=== PATIENT | female | born 1970 | race Caucasian/White ===

== ENCOUNTER 2016-07-11 19:03 | Emergency (ER) | payer MEDICAID ==
[~2016-07-11] VITALS: Ht 154.9 cm; Wt 69.5 kg
[~2016-07-11 19:03] MED LIST: ALBUTEROL; MONT5TAB12; PRED10TA
[2016-07-11 20:06] VITALS: Ht 154.9 cm; Wt 69.5 kg
[2016-07-11] MEDS ORDERED: IBUP-1542 PO (22:11)
[2016-07-11] MEDS ORDERED: AMO500 PO (22:11)
--- NOTE | 2016-07-11 22:16 | ERD ---
ER Documentation Chief Complaint Date/Time DATE: 07/11/16 TIME: 22:14 Chief Complaint sore throat for today with vera HPI 46-year-old female presents to emergency department for complaint of sore throat headache started today. Patient's complaining of sore throat, burning pain, 6/10 scale, is worse upon swallowing. This is accompanied with headache, throbbing pain, 3/10 scale. Patient did not take any medications of symptoms. Patient denies any shortness breath or stridor. Patient denies any cough. Patient denies any runny nose nasal congestion. Patient denies any fever or chills. Patient denies any neck pain. Patient denies any difficulty swallowing. ROS All systems reviewed and are negative except as per history of present illness. Medications Home Meds Active Scripts Amoxicillin* (Amoxicillin*) 500 Mg Cap, 500 MG PO TID for 10 Days, CAP Prov:LUCIANA NAYLOR REMOTE SENSING ENGINEER 07/11/16 Ibuprofen* (Motrin*) 600 Mg Tab, 600 MG PO Q6H Y for PAIN AND OR ELEVATED TEMP, #30 TAB Prov:LUCIANA NAYLOR REMOTE SENSING ENGINEER 07/11/16 Reported Medications Montelukast Sodium* (Singulair*) 5 Mg Tab.chew, 1 BID 03/11/13 Prednisone* (Prednisone*) 10 Mg Tab, 1 DAILY 03/11/13 [Albuterol] No Conflict Check 10/20/09 Allergies Allergies: Coded Allergies: No Known Allergy (Unverified , 03/11/13) PMhx/Soc History of Surgery: No Anesthesia Reaction: No Hx Neurological Disorder: No Hx Respiratory Disorders: Yes (ASTHMA) Hx Cardiac Disorders: No Hx Psychiatric Problems: No Hx Miscellaneous Medical Probl: Yes (GALLSTONES) Hx Alcohol Use: No Hx Substance Use: No Hx Tobacco Use: No FmHx Family History: No coronary disease, No diabetes, No other Physical Exam Vitals Vital Signs Date Time Temp Pulse Resp B/P Pulse Ox O2 Delivery O2 Flow Rate FiO2 07/11/16 20:06 98.3 86 20 115/58 98 Physical Exam GENERAL: The patient is well developed and appropriate for usual state of health, in no apparent distress. HEENT: Atraumatic. Ears: Normal tympanic membrane, no erythema or bulging. No ear canal swelling. No ear discharge. Nose: normal nasal turbinates, no erythema or swelling. Normal nasal discharge. Throat: oropharynx erythematous with +1 bilateral tonsillar swelling with exudates noted. No lymphadenopathy. CHEST: Clear to auscultation bilaterally. There are no rales, wheezes or rhonchi. HEART: Regular rate and rhythm. No murmurs, clicks, rubs or gallops. No S3 or S4. ABDOMEN: Soft, nontender and nondistended. Good bowel sounds. No rebound or guarding. No gross peritonitis. No gross organomegaly or masses. No Romero sign or McBurney point tenderness. BACK: No midline or flank tenderness. EXTREMITIES: Equal pulses bilaterally. There is no peripheral clubbing, cyanosis or edema. No focal swelling or erythema. Full range of motion. Grossly neurovascularly intact. NEURO: Alert and oriented. Cranial nerves 2-12 intact. Motor strength in all 4 extremities with 5/5 strength. Sensation grossly intact. Normal speech and gait. SKIN: There is no apparent rash or petechia. The skin is warm and dry. HEMATOLOGIC AND LYMPHATIC: There is no evidence of excessive bruising or lymphedema. No gross cervical, axillary, or inguinal lymphadenopathy. Procedures/MDM Medical decision making: Patient's symptoms most active consistent with acute bacterial pharyngitis, most likely strep throat, no symptoms of respiratory distress, no oral airway obstruction noted, no symptoms of peritonsillar abscess , epiglottitis, laryngitis. No symptoms of sepsis at this time. Patient appears well and is hemodynamically stable. Prescription was given for ibuprofen, amoxicillin, is advised to do salt water gargles, rest, drink a lot of water. Patient was advised to return to emergency department for any worsening symptoms , follow-up with primary care doctor in 2-3 days for reevaluation of symptoms. Departure Diagnosis: Primary Impression: Acute bacterial pharyngitis Condition: Stable Patient Instructions: Pharyngitis, Strep (Presumed) [facility] Usted se vera hecho un examen mdico de control que le indica que no est en andrey condicin que requiera tratamiento urgente en el Departamento de Emergencia. Un estudio ms profundo y el tratamiento de ring condicin pueden esperar sin ningn riesgo hasta que usted sea atendida/o en el consultorio de ring mdico o andrey cl teddy. Es responsabilidad suya arreglar andrey elmer para el seguimiento del joaquin. MANEJO DE CONDICIONES NO URGENTES EN EL FUTURO 1) Si usted tiene un mdico de atencin primaria: Usted debera llamar a ring mdico de atencin primaria antes de venir al departamento de emergencia. Despus de las horas de consultorio, ring doctor o ring asociado/a est disponible por telfono. El mdico o enfermero de yvette en el servicio telefnico puede asesorarle por mitesh medio para atender el problema, o joaquin contrario se puede programar andrey elmer. 2) Si usted no tiene un mdico de atencin primaria: Llame al mdico o clnica de referencia que aparece abajo ceferino las horas de consultorio para hacer andrey elmer para que le vean. CLINICAS: [facility] [phone] [facility] [phone] [facility]. [facility] [phone] [facility]. [place] [phone] [facility]. [place] [phone] [facility]. [phone] [address] . [facility] () Trista se vera hecho un examen mdico de control que le indica que no est en andrey condicin que requiera tratamiento urgente en el Departamento de Emergencia. Un estudio ms profundo y el tratamiento de ring condicin pueden esperar sin ningn riesgo hasta que usted sea atendida/o en el consultorio de ring mdico o andrey cl teddy. Es responsabilidad suya arreglar andrey elmer para el seguimiento del joaquin. MANEJO DE CONDICIONES NO URGENTES EN EL FUTURO 1) Si usted tiene un mdico de atencin primaria: Usted debera llamar a ring mdico de atencin primaria antes de venir al departamento de emergencia. Despus de las horas de consultorio, ring doctor o ring asociado/a est disponible por telfono. El mdico o enfermero de yvette en el servicio telefnico puede asesorarle por mitesh medio para atender el problema, o joaquin contrario se puede programar andrey elmer. 2) Si usted no tiene un mdico de atencin primaria: Llame al mdico o condado institucions de referencia que aparece abajo ceferino las horas de consultorio para hacer andrey elmer para que le vean. SI USTED NO PUEDE PAGAR PARA MARIANNA UN MEDICO puede ir a: [facility] [address] [place] [address] [facility] [address] [place] [address] [facility] [address] [place] [address] [facility] [address] [place] [address] CUISIA,LUCIANA Weber NP Jul 11, 2016 22:16
== END 2016-07-11 22:22 | disposition home or self-care (01) ==
LOC: FTE 19:03
DX: J02.9 Acute pharyngitis, unspecified (principal); J45.909 Unspecified asthma, uncomplicated
CPT/HCPCS: 99283

== ENCOUNTER 2017-02-10 17:52 | Inpatient (IN) | payer MEDICAID ==
[~2017-02-10] VITALS: Ht 147.3 cm; Wt 62.9 kg
[~2017-02-10 17:52] MED LIST changes: +AMO500 PO; +IBUP-1542 PO
[2017-02-10 18:19] VITALS: Ht 147.3 cm; Wt 62.9 kg
[2017-02-10] MEDS ORDERED: CEFEPIME 2GM/50 ML (PMX) 50 ML IVPB STA (20:07)
[2017-02-10] MEDS ORDERED: SODIUM CHLORIDE 0.9% 1L BAG IV* STA (20:07)
[2017-02-10] MEDS ORDERED: ALBUTEROL 0.083% (NEB) 2.5 MG/3 ML AMP HHN STA (20:07)
[2017-02-10 20:10] VITALS: TEMP 100.4
[2017-02-10] MEDS ORDERED: IPRATROPIUM (NEB) 0.5 MG/2.5 ML AMP HHN ONE (20:30)
--- NOTE | 2017-02-10 21:06 | RADRPT ---
PROCEDURE: XR Chest. CLINICAL INDICATION: Possible sepsis TECHNIQUE: Single frontal view of the chest was obtained COMPARISON: None FINDINGS: The heart and mediastinum are within normal limits. There is minimal prominence of the lung interstitium likely minimal chronic changes. Patchy increase d densities at lung bases could represent patchy infiltrates. There is no pleural effusion or pneumothorax. ECG leads projected over the chest. IMPRESSION: Patchy increased densities at lung bases could represent patchy infiltrates. RPTAT: HJES .Sagar Velasquez MD, MD Date Time Electronically viewed and signed by .Sagar Velasquez MD, MD on 02/10/2017 21:06 .S/
[2017-02-10 21:26] LABS: ABNORMAL IP MESSAGE 1; HEMATOCRIT 34.3 % (37.0-47.0); HEMOGLOBIN 11.1 g/dl (12.0-16.0); MEAN CORPUSCULAR HEMOGLOBIN 26.4 pg (29.0-33.0); MEAN CORPUSCULAR HGB CONC 32.4 g/dl (32.0-37.0); MEAN CORPUSCULAR VOLUME 81.7 fl (82.0-101.0); MEAN PLATELET VOLUME 10.9 fl (7.4-10.4); PLATELET COUNT 83 10^3/UL (140-415); RED CELL DISTRIBUTION WIDTH 14.9 % (11.5-14.5); WHITE BLOOD COUNT 20.7 10^3/ul (4.8-10.8)
[2017-02-10] MEDS ORDERED: MONT5TAB16 PO (21:38)
[2017-02-10] MEDS ORDERED: MOME13HF INHALATION (21:40)
[2017-02-10] MEDS ORDERED: ALBU2.5V3 NEB (21:40)
[2017-02-10 21:47] LABS: INR 1.14; PROTIME 14.6 Sec (12.2-14.2); PT RATIO 1.1
[2017-02-10 21:48] LABS: PARTIAL THROMBOPLASTIN TIME 32.9 Sec (25.0-35.0)
[2017-02-10 21:55] LABS: ALANINE AMINOTRANSFERASE 29 IU/L (13-69); ALBUMIN 3.9 g/dl (3.3-4.9); ALBUMIN/GLOBULIN RATIO 1.11; ALKALINE PHOSPHATASE 89 IU/L (42-121); ANION GAP 13 (8-16); ASPARTATE AMINO TRANSFERASE 16 IU/L (15-46); BILIRUBIN,INDIRECT 0.9 mg/dl (0-1.1); BILIRUBIN,TOTAL 0.9 mg/dl (0.2-1.3); BLOOD UREA NITROGEN 10 mg/dl (7-20); CARBON DIOXIDE 30 mmol/L (21-31); CHLORIDE 96 mmol/L (97-110); CREATININE 0.54 mg/dl (0.44-1.00); GLUCOSE 135 mg/dl (70-220); POTASSIUM 3.8 mmol/L (3.5-5.1); SODIUM 135 mmol/L (135-144); TOTAL PROTEIN 7.4 g/dl (6.1-8.1)
[2017-02-10 21:57] LABS: POSITIVE DIFF @See below
[2017-02-10 22:06] LABS: TROPONIN-I < 0.012 ng/ml (0.00-0.12)
[2017-02-10 22:50] LABS: ADD UMIC YES; UR ASCORBIC ACID NEGATIVE (NEGATIVE); UR BILIRUBIN (Dip) NEGATIVE (NEGATIVE); UR BLOOD (Dip) 3+ mg/dL (NEGATIVE); UR CLARITY CLEAR (CLEAR); UR COLOR YELLOW (YELLOW); UR GLUCOSE (Dip) NEGATIVE (NEGATIVE); UR KETONES (Dip) 1+ mg/dL (NEGATIVE); UR LEUKOCYTE ESTERASE (Dip) NEGATIVE Leu/ul (NEGATIVE); UR NITRITE (Dip) NEGATIVE (NEGATIVE); UR RBC 3 /HPF (0-5); UR SPECIFIC GRAVITY (Dip) 1.015 (1.003-1.030); UR TOTAL PROTEIN (Dip) NEGATIVE (NEGATIVE); UR UROBILINOGEN (Dip) 1+ mg/dL (NEGATIVE)
[2017-02-10 22:57] LABS: EOSINOPHILS # 0.4 10^3/ul (0.0-0.5); EOSINOPHILS % (M) 2 % (0.0-7.0); ERYTHROBLAST% (NRBC) (M) 1 % (0-0); LYMPHOCYTES # 0.8 10^3/ul (0.8-2.9); MONOCYTES % (M) 5 % (0-11)
[2017-02-10] MEDS ORDERED: ONDANSETRON 4 MG INJ IV PRN (23:00)
[2017-02-10] MEDS ORDERED: ACETAMINOPHEN 325 MG TAB PO PRN (23:00)
[2017-02-10] MEDS ORDERED: AZITHROMYCIN 500MG/NS (PMX) 250 ML IVPB ONE (23:30)
--- NOTE | 2017-02-10 23:31 | ERA ---
ER Documentation Chief Complaint Date/Time DATE: 02/10/17 TIME: 23:24 Chief Complaint Complains of vomiting and fever x 3 days HX of Asthma HPI This 46-year-old female presents for vomiting and fever 3 days. She has a history of asthma. He has had very little cough. Does not feel short of breath. She has had fevers and chills and felt much more fatigued than usual. ROS All systems reviewed and are negative except as per history of present illness. Medications Home Meds Reported Medications Mometasone-Formoterol (Dulera) Unknown Strength Hfa.aer.ad, 2 PUFFS INHALATION BID, #1 INHALER 02/10/17 Albuterol Sulfate* (Albuterol Sulfate* Neb) Unknown Strength Neb, MG NEB Q7D Y for WHEEZING AND SOB, #30 VIAL 02/10/17 Montelukast Sodium* (Montelukast Sodium*) 5 Mg Tab.chew, 5 MG PO BID, #30 TAB 02/10/17 Discontinued Reported Medications Montelukast Sodium* (Singulair*) 5 Mg Tab.chew, 1 BID 03/11/13 Prednisone* (Prednisone*) 10 Mg Tab, 1 DAILY 03/11/13 [Albuterol] No Conflict Check 10/20/09 Discontinued Scripts Amoxicillin* (Amoxicillin*) 500 Mg Cap, 500 MG PO TID for 10 Days, CAP Prov:LUCIANA NAYLOR MEDICAL VIDEOGRAPHER 07/11/16 Ibuprofen* (Motrin*) 600 Mg Tab, 600 MG PO Q6H Y for PAIN AND OR ELEVATED TEMP, #30 TAB Prov:LUCIANA NAYLOR MEDICAL VIDEOGRAPHER 07/11/16 Allergies Allergies: Coded Allergies: hydrocortisone (Unverified Allergy, Mild, vomiting, 02/10/17) PMhx/Soc History of Surgery: Yes ( x 2) Anesthesia Reaction: No Hx Neurological Disorder: No Hx Respiratory Disorders: Yes (ASTHMA) Hx Cardiac Disorders: No Hx Psychiatric Problems: No Hx Miscellaneous Medical Probl: Yes (GALLSTONES, pancreatitis) Hx Alcohol Use: No Hx Substance Use: No Hx Tobacco Use: No Physical Exam Vitals Vital Signs Date Time Temp Pulse Resp B/P Pulse Ox O2 Delivery O2 Flow Rate FiO2 02/10/17 21:25 105 24 95 21 02/10/17 18:19 103.3 126 20 107/60 94 Physical Exam Const: [] Mild distress to moderate distress Head: Atraumatic Eyes: Normal Conjunctiva ENT: Normal External Ears, Nose and Mouth. Neck: Full range of motion..~ No meningismus. Resp: Decreased bibasilar breath sounds, no wheezing Cardio: Regular Tachycardia no murmurs Abd: Soft, Mild epigastric tenderness without guarding or rebound,, non distended. Normal bowel sounds Skin: No petechiae or rashes Back: No midline or flank tenderness Ext: No cyanosis, or edema Neur: Awake and alert Psych: Normal Mood and Affect Result Diagram: 02/10/17204402/10/172044 Results 24 hrs Laboratory Tests Test 02/10/17 20:45 02/10/17 21:00 02/10/17 22:00 White Blood Count 20.710^3/ul Red Blood Count 4.2010^6/ul Hemoglobin 11.1g/dl Hematocrit 34.3% Mean Corpuscular Volume 81.7fl Mean Corpuscular Hemoglobin 26.4pg Mean Corpuscular Hemoglobin Concent 32.4g/dl Red Cell Distribution Width 14.9% Platelet Count 8310^3/UL Mean Platelet Volume 10.9fl Neutrophils % % Segmented Neutrophils % (Manual) 87% Band Neutrophils % (Manual) 2% Lymphocytes % % Lymphocytes % (Manual) 4% Monocytes % % Monocytes % (Manual) 5% Eosinophils % % Eosinophils % (Manual) 2% Basophils % % Nucleated Red Blood Cells % 1% Neutrophils # (Manual) 18.110^3/ul Band Neutrophils # 0.410^3/ul Absolute Lymphocytes (Manual) Pending Lymphocytes # 0.810^3/ul Monocytes # 1.010^3/ul Absolute Monocytes (Manual) Pending Eosinophils # 0.410^3/ul Basophils # 10^3/ul Nucleated Red Blood Cells # 10^3/ul Prothrombin Time 14.6Sec Prothrombin Time Ratio 1.1 INR International Normalized Ratio 1.14 Activated Partial Thromboplast Time 32.9Sec Sodium Level 135mmol/L Potassium Level 3.8mmol/L Chloride Level 96mmol/L Carbon Dioxide Level 30mmol/L Anion Gap 13 Blood Urea Nitrogen 10mg/dl Creatinine 0.54mg/dl Glucose Level 135mg/dl Calcium Level 9.0mg/dl Total Bilirubin 0.9mg/dl Direct Bilirubin 0.00mg/dl Indirect Bilirubin 0.9mg/dl Aspartate Amino Transf (AST/SGOT) 16IU/L Alanine Aminotransferase (ALT/SGPT) 29IU/L Alkaline Phosphatase 89IU/L Troponin I < 0.012ng/ml Total Protein 7.4g/dl Albumin 3.9g/dl Globulin 3.50g/dl Albumin/Globulin Ratio 1.11 Lactic Acid Level 1.2mmol/L Urine Color YELLOW Urine Clarity CLEAR Urine pH 6.0 Urine Specific Central 1.015 Urine Ketones 1+mg/dL Urine Nitrite NEGATIVEmg/dL Urine Bilirubin NEGATIVEmg/dL Urine Urobilinogen 1+mg/dL Urine Leukocyte Esterase NEGATIVELeu/ul Urine Microscopic RBC 3/HPF Urine Microscopic WBC 1/HPF Urine Hemoglobin 3+mg/dL Urine Glucose NEGATIVEmg/dL Urine Total Protein NEGATIVEmg/dl Current Medications Medications (Trade) Dose Ordered Sig/Lex Route PRN Reason Start Time Stop Time Status Last Admin Dose Admin Sodium Chloride 1910 ml 1,910 ml BOLUS OVER 2 HOURS STAT IV* 02/10/17 20:07 02/10/17 20:10 DC 02/10/17 20:35 Cefepime HCl (Maxipime 2gm/50 ml (Pmx)) 50 ml @ 100 mls/hr ONCE STAT IVPB 02/10/17 20:07 02/10/17 20:36 DC 02/10/17 20:35 Albuterol (Proventil 0.083% (Neb)) 5 mg ONCE STAT HHN 02/10/17 20:07 02/10/17 20:10 DC 02/10/17 20:25 Ipratropium How[place] (Atrovent 0.02% (Neb)) 0.5 mg ONCE ONCE HHN 02/10/17 20:30 02/10/17 20:31 DC 02/10/17 20:25 Ondansetron HCl (Zofran Inj) 4 mg BRIDGE ORDER PRN IV NAUSEA AND/OR VOMITING 02/10/17 23:00 02/11/17 22:59 Acetaminophen (Tylenol Tab) 650 mg ER BRIDGE PRN PO MILD PAIN/FEVER 02/10/17 23:00 02/11/17 22:59 Procedures/MDM Pneumonia with sepsis. She has not had any hospitals recently and is in a community acquired pneumonia. She was given 30 cc/kg of IV fluid and cefepime empirically. She still felt lightheaded but was improving. Tachycardia improved with fluid administration as well. Patient denies any specific pain. She is being admitted to the medical surgical floor for further management and IV antibiotics.Patient also vomited blood twice and she has very low platelets. This will be monitored as well. EKG interpretation: Sinus tachycardia rate of 120, no ST or T-wave changes concerning for acute ischemia, normal axis, normal intervals. equipment monitor phototypesetting interpretation: Sinus tachycardia improved with IV fluids Chest x-ray interpretation: Patchy infiltrates in bilateral lower lungs, no evidence of pneumothorax or pulmonary edema, no fractures Critical care time 37 minutes: This includes treatment of pneumonia sepsis, very careful fluid administration, treatment of unstable vital signs, empiric antibiotic administration, multiple visits patient's bedside to reassess status , chart review, discussion with admitting doctor and patient. This does not include any billable procedures. Departure Diagnosis: Primary Impression: Thrombocytopenia Additional Impressions: Sepsis due to pneumonia Hematemesis Condition: Serious SONDRA COREAS DO Feb 10, 2017 23:31
[2017-02-11] MEDS ORDERED: METOCLOPRAMIDE 10 MG INJ IV ONE
--- NOTE | 2017-02-11 00:02 | RADRPT ---
PROCEDURE: CT ABDOMEN/PELVIS WITHOUT CONTRAST CLINICAL INDICATION: 46-year-old female with abdominal pain and hematemesis. TECHNIQUE: The study was performed utilizing a GE Evoinfinitypeed VCT 64-slice CT scanner. Direct axia l sections were obtained through the abdomen and pelvis without the use of intravenous contrast mate rial. Sagittal and coronal reformations were obtained. One or more of the following dose reduction t echniques were utilized: automated exposure control, adjustment of the mA and/or kV according to pat ient's size or use of iterative reconstruction technique. The images were reviewed on a PACS workst atYoulicit. CTD/vol = 7.4 mGy; Total Exam DLP = 398.9 mGy-cm. COMPARISON: Chest x-ray February 10, 2017. FINDINGS: There is extensive bronchiectasis identified within the partially visualized right middle lobe, ling jemima and lung bases. There is an infiltrate present within the medial basal segment of the right low er lobe with air bronchograms. There is no evidence for significant pleural effusion. The liver vera s a normal size and contour without focal areas of abnormal density. No intrahepatic nor extrahepati c biliary ductal dilatation is seen. The gallbladder contains innumerable calcified gallstones witho ut significant wall thickening or pericholecystic fluid. The pancreas is without areas of abnormal a ttenuation. The spleen is enlarged measuring 14.0 cm in maximal length but without abnormal density . The adrenal glands are unremarkable. The kidneys are without abnormal density. No hydroureteroneph rosis nor nephroureterolithiasis is evident. The urinary bladder contains urine. There is a small um bilical hernia with an opening of 12 x 9 mm,. There is distal small bowel fecalization and mild retained stool without gross bowel obstruction. The appendix is visualized and is without abnormal thickening or surrounding inflammatory reaction. The uterus is enlarged with a lobular appearance me asuring approximately 13.3 x 8.4 x 8.7 cm. There is a linear calcific density within the left later al aspect of the uterus. There is a large left adnexal cystic mass measuring approximately 8.0 x 4. 6 x 6.1 cm. There is a smaller inferior cystic left adnexal mass measuring approximately 4.8 x 4.6 x 3.6 cm. There is no significant pelvic free fluid. The aortoiliac vessels are without aneurysmal dilatation. Degenerative changes are seen within the spine. There appears to be partial fusion of the L4-5 interspace with marked L5-S1 facet arthropathy. IMPRESSION: 1. Extensive bronchiectasis in the partially visualized right middle lobe, lingula and throughout t he lung bases. 2. Dense infiltrate medial basal segment right lower lobe. 3. Extensive cholelithiasis. 4. Splenomegaly. 5. Fecalization of the small bowel with mild retained stool without gross bowel obstruction. 6. No CT evidence for appendicitis. 7. Small umbilical hernia containing fat. 8. Enlarged lobular uterus with linear left lateral calcific density. 9. Multiple left adnexal cystic masses presumably ovarian in origin. 10. Degenerative changes within the spine. .Siva Torres MD, Date Time Electronically viewed and signed by .Siva Torres MD, on 02/11/2017 00:01 .Katt/
[2017-02-11 01:00] VITALS: BP 105/54; PULSE 96; RESP 18
[2017-02-11] MEDS ORDERED: ONDANSETRON 4 MG INJ IV PRN (01:30)
[2017-02-11] MEDS ORDERED: ALBUTEROL/IPRATROPIUM (NEB) 3 ML AMP HHN PRN (01:30)
[2017-02-11 02:00] VITALS: BP 105/54; RESP 18
[2017-02-11] MEDS: ACETAMINOPHEN 325 MG TAB PO PRN ×2 (02:28→15:47)
[2017-02-11] MEDS: LEVOFLOXACIN 500MG/D5W (PMX) 100 ML IVPB SCH (02:34)
[2017-02-11 06:06] LABS: ABNORMAL IP MESSAGE 1; BASOPHILS % 0.1 % (0.0-2.0); EOSINOPHILS # 0.2 10^3/ul (0.0-0.5); EOSINOPHILS % 1.3 % (0.0-7.0); HEMATOCRIT 29.5 % (37.0-47.0); HEMOGLOBIN 9.3 g/dl (12.0-16.0); LYMPHOCYTES % 14.7 % (15.0-51.0); MEAN CORPUSCULAR HEMOGLOBIN 25.9 pg (29.0-33.0); MEAN CORPUSCULAR HGB CONC 31.5 g/dl (32.0-37.0); MEAN CORPUSCULAR VOLUME 82.2 fl (82.0-101.0); MEAN PLATELET VOLUME 11.6 fl (7.4-10.4); MONOCYTE # 1.6 10^3/ul (0.3-0.9); NEUTROPHILS % 71.4 % (39.0-77.0); PLATELET COUNT 82 10^3/UL (140-415); RED BLOOD COUNT 3.59 10^6/ul (4.20-5.40); RED CELL DISTRIBUTION WIDTH 15.2 % (11.5-14.5); WHITE BLOOD COUNT 13.6 10^3/ul (4.8-10.8)
[2017-02-11 06:29] LABS: ALBUMIN 3.5 g/dl (3.3-4.9); ALBUMIN/GLOBULIN RATIO 1.16; BILIRUBIN,INDIRECT 0.7 mg/dl (0-1.1); BILIRUBIN,TOTAL 0.7 mg/dl (0.2-1.3); CALCIUM 8.7 mg/dl (8.4-10.2); CREATININE 0.51 mg/dl (0.44-1.00); MAGNESIUM 2.3 mg/dl (1.7-2.5); PHOSPHORUS 2.8 mg/dl (2.5-4.9); POTASSIUM 4.1 mmol/L (3.5-5.1); TOTAL PROTEIN 6.5 g/dl (6.1-8.1)
[2017-02-11 06:37] LABS: POSITIVE DIFF @See below
[2017-02-11 07:42] VITALS: BP 117/59; RESP 20
--- NOTE | 2017-02-11 11:00 | HP ---
Date/Time of Note Date/Time of Note DATE: 02/11/17 TIME: 10:55 Assessment/Plan Lines/Catheters IV C[facility]ter Type (from [facility]): Saline Lock Urinary Cath still in place: No Assessment/Plan Assessment/Plan 1. GI Bleed - hgb dropped from 11 to 9 this am - PPI - GI consult 2. Sepsis / PNA -IV abx - f/u culture results 3. Cholelithiasis: per CT extensive - pt knows about this diagnosis. Currently no abd pain. HPI/ROS Admit Date/Time Admit Date/Time Feb 10, 2017 at 22:59 Hx of Present Illness This is a 46 yo female with hxof asthma and gallstones who presented to ER c/o vomiting blood since yesterday. Emesis described as bright red blood. She reported similar problem a while ago, but denied any intervention. Denied abd pain or alcohol. IN ER, she was febrile with temp of 103 and had WBC of 20,000. CXR showed Patchy increased densities at lung bases could represent patchy infiltrates.CT abd/pelvis showed the following 1. Extensive bronchiectasis in the partially visualized right middle lobe, lingula and throughout the lung bases. 2. Dense infiltrate medial basal segment right lower lobe. 3. Extensive cholelithiasis. 4. Splenomegaly. 5. Fecalization of the small bowel with mild retained stool without gross bowel obstruction. 6. No CT evidence for appendicitis. 7. Small umbilical hernia containing fat. 8. Enlarged lobular uterus with linear left lateral calcific density. 9. Multiple left adnexal cystic masses presumably ovarian in origin. 10. Degenerative changes within the spine. PMH/Family/Social Social History Smoking Status: Never smoker Exam/Review of Systems Vital Signs Vitals Vital Signs Date Time Temp Pulse Resp B/P Pulse Ox O2 Delivery O2 Flow Rate FiO2 02/11/17 07:42 98.0 79 20 117/59 97 02/11/17 01:00 Room Air 02/10/17 21:25 21 Intake and Output 02/10/17 02/10/17 02/11/17 15:00 23:00 07:00 Intake Total 800 ml Output Total 600 ml Balance 200 ml Labs Result Diagram: 02/11/17 0529 02/11/1729 Medications Medications Current Medications Levofloxacin/ Dextrose (Levaquin 500mg/ D5W 100 ml (Pmx)) 100 ml @ 100 mls/hr Q24H IVPB Last administered on 02/11/17 02:34; Admin Dose 100 MLS/HR; Start 02/11/17 at 02:00 Ondansetron HCl (Zofran Inj) 4 mg Q6H PRN IV NAUSEA AND/OR VOMITING; Start 02/11 at 01:30 Acetaminophen (Tylenol Tab) 650 mg Q6H PRN PO PAIN AND OR ELEVATED TEMP Last administered on 02/11/17 02:28; Admin Dose 650 MG; Start 02/11/17 at 01:30 ANNETTE RASHID MD Feb 11, 2017 11:00
--- NOTE | 2017-02-11 11:41 | PN ---
Date/Time of Note Date/Time of Note DATE: 02/11/17 TIME: 11:32 Assessment/Plan VTE Prophylaxis VTE Prophylaxis Intervention: SCD's Lines/Catheters IV [facility] Saline Lock Urinary Cath still in place: No Assessment/Plan Chief Complaint/Hosp Course Assessment and plan 1. GI bleed. Patient noted with acute hemoglobin drop from 11-9. Sports Analyst is following. Tentative plan for EGD/colonoscopy. 2. Reported hematuria. Noted with positive hemoglobin and urinalysis. Follow- up on urine culture. Pelvic ultrasound is pending. Further recommendations pending clinical course 3. Sepsis with pneumonia. On room air at this time. Continue antibiotics 4. Extensive cholelithiasis per CT scan of abdomen. Patient denies any abdominal pain at this time. Will monitor for now. Disposition plan: Follow-up with pelvic ultrasound reported hematuria/possible vaginal bleed. Monitor H&H. Transfuse PRBC as needed. Tentative plan for EGD/ colonoscopy. Discussed plan of care with Dr. Valles Problems: Subjective 24 Hr Interval Summary Free Text/Dictation reports having some hematuria Exam/Review of Systems Vital Signs Vitals Vital Signs Date Time Temp Pulse Resp B/P Pulse Ox O2 Delivery O2 Flow Rate FiO2 02/11/17 07:42 98.0 79 20 117/59 97 02/11/17 01:00 Room Air 02/10/17 21:25 21 Intake and Output 02/10/17 02/10/17 02/11/17 15:00 23:00 07:00 Intake Total 800 ml Output Total 600 ml Balance 200 ml Exam Constitutional: alert, oriented Psych: nl mood/affect Respiratory: normal air movement Cardiovascular: regular rate and rhythm Gastrointestinal: non-tender, soft Musculoskeletal: nl extremities to inspection, nl gait and stance Neurological: GRIZZLY WORKER II-XII intact, nl mental status, nl speech Results Result Diagram: 02/11/17 0529 02/11/17 0529 Results 24 hrs Laboratory Tests Test 02/10/17 20:45 02/10/17 21:00 02/10/17 22:00 02/10/17 23:00 White Blood Count 20.7 H Red Blood Count 4.20 Hemoglobin 11.1 L Hematocrit 34.3 L Mean Corpuscular Volume 81.7 L Mean Corpuscular Hemoglobin 26.4 L Mean Corpuscular Hemoglobin Concent 32.4 Red Cell Distribution Width 14.9 H Platelet Count 83 L Mean Platelet Volume 10.9 H Neutrophils % Segmented Neutrophils % (Manual) 87 H Band Neutrophils % (Manual) 2 Lymphocytes % Lymphocytes % (Manual) 4 L Monocytes % Monocytes % (Manual) 5 Eosinophils % Eosinophils % (Manual) 2 Basophils % Nucleated Red Blood Cells % 1 H Neutrophils # (Manual) 18.1 H Band Neutrophils # 0.4 Absolute Lymphocytes (Manual) 0.8 Lymphocytes # 0.8 Monocytes # 1.0 H Absolute Monocytes (Manual) 1.0 H Eosinophils # 0.4 Basophils # Nucleated Red Blood Cells # Prothrombin Time 14.6 H Prothrombin Time Ratio 1.1 INR International Normalized Ratio 1.14 Activated Partial Thromboplast Time 32.9 Sodium Level 135 Potassium Level 3.8 Chloride Level 96 L Carbon Dioxide Level 30 Anion Gap 13 Blood Urea Nitrogen 10 Creatinine 0.54 Glucose Level 135 Calcium Level 9.0 Total Bilirubin 0.9 Direct Bilirubin 0.00 Indirect Bilirubin 0.9 Aspartate Amino Transf (AST/SGOT) 16 Alanine Aminotransferase (ALT/SGPT) 29 Alkaline Phosphatase 89 Troponin I < 0.012 Total Protein 7.4 Albumin 3.9 Globulin 3.50 H Albumin/Globulin Ratio 1.11 Lactic Acid Level 1.2 1.2 Urine Color YELLOW Urine Clarity CLEAR Urine pH 6.0 Urine Specific [place] 1.015 Urine Ketones 1+ H Urine Nitrite NEGATIVE Urine Bilirubin NEGATIVE Urine Urobilinogen 1+ H Urine Leukocyte Esterase NEGATIVE Urine Microscopic RBC 3 Urine Microscopic WBC 1 Urine Hemoglobin 3+ H Urine Glucose NEGATIVE Urine Total Protein NEGATIVE Test 02/11/17 00:10 02/11/17 05:29 Lactic Acid Level 1.0 White Blood Count 13.6 #H Red Blood Count 3.59 L Hemoglobin 9.3 L Hematocrit 29.5 L Mean Corpuscular Volume 82.2 Mean Corpuscular Hemoglobin 25.9 L Mean Corpuscular Hemoglobin Concent 31.5 L Red Cell Distribution Width 15.2 H Platelet Count 82 L Mean Platelet Volume 11.6 H Neutrophils % 71.4 Lymphocytes % 14.7 L Monocytes % 12.0 H Eosinophils % 1.3 Basophils % 0.1 Nucleated Red Blood Cells % 0.0 Neutrophils # (Manual) 9.7 H Lymphocytes # 2.0 Monocytes # 1.6 H Eosinophils # 0.2 Basophils # 0.0 Nucleated Red Blood Cells # 0.0 Sodium Level 142 Potassium Level 4.1 Chloride Level 104 Carbon Dioxide Level 29 Anion Gap 13 Blood Urea Nitrogen 8 Creatinine 0.51 Glucose Level 119 Calcium Level 8.7 Phosphorus Level 2.8 Magnesium Level 2.3 Total Bilirubin 0.7 Direct Bilirubin 0.00 Indirect Bilirubin 0.7 Aspartate Amino Transf (AST/SGOT) 15 Alanine Aminotransferase (ALT/SGPT) 28 Alkaline Phosphatase 74 Total Protein 6.5 Albumin 3.5 Globulin 3.00 Albumin/Globulin Ratio 1.16 Medications Medications Current Medications Levofloxacin/ Dextrose (Levaquin 500mg/ D5W 100 ml (Pmx)) 100 ml @ 100 mls/hr Q24H IVPB Last administered on 02/11/17 02:34; Admin Dose 100 MLS/HR; Start 02/11/17 at 02:00 Ondansetron HCl (Zofran Inj) 4 mg Q6H PRN IV NAUSEA AND/OR VOMITING; Start 02/11 at 01:30 Acetaminophen (Tylenol Tab) 650 mg Q6H PRN PO PAIN AND OR ELEVATED TEMP Last administered on 02/11/17 02:28; Admin Dose 650 MG; Start 02/11/17 at 01:30 Pantoprazole (Protonix Iv) 40 mg BID@06,18 IV ; Start 02/11/17 at 18:00 Polyethylene Glycol/ Electrolytes (Golytely) 4,000 ml ONCE ONCE PO ; Start 02/11 at 11:30; Stop 02/11/17 at 11:31; Status ODALIS GOODMAN Feb 11, 2017 11:41
[2017-02-11] MEDS ORDERED: PEG/ELECTROLYTES 4L BTL PO ONE (12:00)
[2017-02-11 13:31] VITALS: BP 122/59; RESP 20
--- NOTE | 2017-02-11 15:51 | RADRPT ---
PROCEDURE: US Pelvis CLINICAL INDICATION: Menorrhagia. TECHNIQUE: Transabdominal imaging of the pelvis was performed. COMPARISON: CT dated 02/10/2017. FINDINGS: The uterus is diffusely heterogeneous with a fibroid in the posterior body measuring 6.4 x 4.8 cm an d a 4.9 x 4.7 cm fibroid in the lower uterine segment. The endometrium is obscured due to leiomyomas and the presence of an intrauterine device. There is normal flow demonstrated in both ovaries. There is a 4.4 x 3.0 cm simple left ovarian cyst. There are no adnexal masses. There is no free fluid within the pelvis. Measurements: Uterus: 13.3 x 7.1 x 9.6 cm Endometrium: Obscured. Right ovary: 3.4 x 1.3 x 2.7 cm Left ovary: 6.0 x 4.6 x 4.8 cm IMPRESSION: 1. Enlarged, leiomyomatous uterus. 2. Simple 4.4 cm left ovarian cyst. 2. Obscured endometrium due to fibroids and an intrauterine device in place. RPTAT: HLBP .Eh Krause MD, MD Date Time Electronically viewed and signed by .Eh Krause MD, MD on 02/11/2017 15:51 .P/
[2017-02-11] MEDS ORDERED: PANTOPRAZOLE 40 MG INJ IV SCH (18:00)
[2017-02-11 19:52] VITALS: BP 137/78; RESP 24
[2017-02-11 20:24] LABS: HEMATOCRIT 32.8 % (37.0-47.0); HEMOGLOBIN 10.6 g/dl (12.0-16.0)
[2017-02-11] MEDS: PANTOPRAZOLE IV 80 MG in SOD CHLORIDE 0.9% 100 ML IV SCH (21:34)
--- NOTE | 2017-02-11 22:26 | CONS ---
Date/Time of Note Date/Time of Note DATE: 02/11/17 TIME: 22:16 Assessment/Plan Assessment/Plan Chief Complaint/Hosp Course Impression: 1. post-hemorrhagic GI bleeding anemia 2. hematemesis 3. maroon colored stool 4. gall stones 5. intractable n/v Recommendations: 1. protonix gtt 2. monitor h/h and transfuse prn hgb less than 8 3. reglan 4. plan for EGD and colonoscopy tomorrow tentatively scheduled at 1 pm Problems: Consultation Date/Type/Reason Admit Date/Time Feb 10, 2017 at 22:59 Date of Consultation: Feb 11, 2017 Type of Consultation: GI Reason for Consultation anemia, hematemesis Hx of Present Illness 46 yo female who is admitted for hematemesis. She has h/o asthma and gallstones. She was in her USOH until yesterday when she felt nauseous and begin to vomiting blood. Emesis described as bright red blood. She reported similar problem a while ago, but denied any intervention. Denied abd pain or alcohol.CXR showed Patchy increased densities at lung bases could represent patchy infiltrates.CT abd/pelvis showed the following 1. Extensive bronchiectasis in the partially visualized right middle lobe, lingula and throughout the lung bases. 2. Dense infiltrate medial basal segment right lower lobe. 3. Extensive cholelithiasis. 4. Splenomegaly. 5. Fecalization of the small bowel with mild retained stool without gross bowel obstruction. 6. No CT evidence for appendicitis. 7. Small umbilical hernia containing fat. 8. Enlarged lobular uterus with linear left lateral calcific density. 9. Multiple left adnexal cystic masses presumably ovarian in origin. 10. Degenerative changes within the spine. She again vomitted tonight but repeat h/h actually increased. I started protonix gtt. Nurse told me she was having vaginal bleeding but through rubber stamp die inspector, she says that she is having her period and it is normal to have vaginal bleeding while in her period. All point ROS administered, pertinent positives and negatives in HPI otherwise negative. Psychological: nl mood/affect Past Medical History asthma, gallstones Medical History: GI bleed Past Surgical History Past Surgical Hx: no surgical history Family History Significant Family History: no pertinent family hx Social History Alcohol Use: none Smoking Status: Never smoker Drug Use: none Exam/Review of Systems Vital Signs Vitals Vital Signs Date Time Temp Pulse Resp B/P Pulse Ox O2 Delivery O2 Flow Rate FiO2 02/11/17 21:37 2.0 02/11/17 21:37 106 26 96 Nasal Cannula 02/11/17 19:52 98.2 137/78 02/10/17 21:25 21 Intake and Output 02/10/17 02/10/17 02/11/17 15:00 23:00 07:00 Intake Total 800 ml Output Total 600 ml Balance 200 ml Exam Constitutional: alert, oriented, well developed Psych: nl mood/affect, no complaints Head: atraumatic, normocephalic Eyes: EOMI, nl conjunctiva, nl lids, nl sclera ENMT: mucosa pink and moist, nl external ears & nose, nl lips & teeth, nl nasal mucosa & septum Neck: non-tender, supple Respiratory: clear to auscultation, normal air movement Cardiovascular: nl pulses, regular rate and rhythm Gastrointestinal: bowel sounds, non-tender, soft Extremities: normal pulses Neurological: nl mental status, nl speech, nl strength Skin: nl turgor Results Result Diagram: 02/11/17201402/11/17 0529 Results 24 hrs Laboratory Tests Test 02/10/17 23:00 02/11/17 00:10 02/11/17 05:29 02/11/17 20:15 Lactic Acid Level 1.2 1.0 White Blood Count 13.6 #H Red Blood Count 3.59 L Hemoglobin 9.3 L 10.6 L Hematocrit 29.5 L 32.8 L Mean Corpuscular Volume 82.2 Mean Corpuscular Hemoglobin 25.9 L Mean Corpuscular Hemoglobin Concent 31.5 L Red Cell Distribution Width 15.2 H Platelet Count 82 L Mean Platelet Volume 11.6 H Neutrophils % 71.4 Lymphocytes % 14.7 L Monocytes % 12.0 H Eosinophils % 1.3 Basophils % 0.1 Nucleated Red Blood Cells % 0.0 Neutrophils # (Manual) 9.7 H Lymphocytes # 2.0 Monocytes # 1.6 H Eosinophils # 0.2 Basophils # 0.0 Nucleated Red Blood Cells # 0.0 Sodium Level 142 Potassium Level 4.1 Chloride Level 104 Carbon Dioxide Level 29 Anion Gap 13 Blood Urea Nitrogen 8 Creatinine 0.51 Glucose Level 119 Calcium Level 8.7 Phosphorus Level 2.8 Magnesium Level 2.3 Total Bilirubin 0.7 Direct Bilirubin 0.00 Indirect Bilirubin 0.7 Aspartate Amino Transf (AST/SGOT) 15 Alanine Aminotransferase (ALT/SGPT) 28 Alkaline Phosphatase 74 Total Protein 6.5 Albumin 3.5 Globulin 3.00 Albumin/Globulin Ratio 1.16 Medications Medications Current Medications Levofloxacin/ Dextrose (Levaquin 500mg/ D5W 100 ml (Pmx)) 100 ml @ 100 mls/hr Q24H IVPB Last administered on 02/11/17 02:34; Admin Dose 100 MLS/HR; Start 02/11/17 at 02:00 Ondansetron HCl (Zofran Inj) 4 mg Q6H PRN IV NAUSEA AND/OR VOMITING; Start 02/11 at 01:30 Acetaminophen 650 mg 650 mg Q6H PRN PO PAIN AND OR ELEVATED TEMP Last administered on 02/11/17 15:47; Admin Dose 650 MG; Start 02/11/17 at 01:30 Pantoprazole/ Sodium Chloride (Protonix Iv/NS) 100 ml @ 10 mls/hr Q10H IV Last administered on 02/11/17 21:34; Admin Dose 10 MLS/HR; Start 02/11/17 at 22: 00 SILVIO MENDOZA MD Feb 11, 2017 22:26
[2017-02-11] MEDS: D5-NS + KCL 20 MEQ 1,000 ML IV SCH (22:46)
[2017-02-12] MEDS: METOCLOPRAMIDE 10 MG INJ IV SCH ×4 (00:28→17:32)
[2017-02-12] MEDS: ACETAMINOPHEN 325 MG TAB PO PRN ×2 (00:34→20:30)
[2017-02-12 02:00] VITALS: BP 108/63; RESP 18
[2017-02-12] MEDS: LEVOFLOXACIN 500MG/D5W (PMX) 100 ML IVPB SCH (02:21)
[2017-02-12 06:55] LABS: BASOPHILS % 0.4 % (0.0-2.0); EOSINOPHILS # 0.3 10^3/ul (0.0-0.5); EOSINOPHILS % 3.1 % (0.0-7.0); HEMATOCRIT 25.7 % (37.0-47.0); HEMOGLOBIN 8.1 g/dl (12.0-16.0); LYMPHOCYTES # 1.7 10^3/ul (0.8-2.9); LYMPHOCYTES % 18.5 % (15.0-51.0); MEAN CORPUSCULAR HEMOGLOBIN 25.8 pg (29.0-33.0); MEAN CORPUSCULAR HGB CONC 31.5 g/dl (32.0-37.0); MEAN CORPUSCULAR VOLUME 81.8 fl (82.0-101.0); MEAN PLATELET VOLUME 11.2 fl (7.4-10.4); MONOCYTE # 0.7 10^3/ul (0.3-0.9); MONOCYTES % 7.6 % (0.0-11.0); RED BLOOD COUNT 3.14 10^6/ul (4.20-5.40); RED CELL DISTRIBUTION WIDTH 15.1 % (11.5-14.5); WHITE BLOOD COUNT 9.4 10^3/ul (4.8-10.8)
[2017-02-12] MEDS ORDERED: MAGNESIUM CITRATE 300 ML BTL PO ONE (07:00)
[2017-02-12 07:13] LABS: PLATELET COUNT 128 10^3/UL (140-415); POSITIVE DIFF @See below
[2017-02-12 07:21] LABS: CALCIUM 8.3 mg/dl (8.4-10.2); CREATININE 0.46 mg/dl (0.44-1.00); POTASSIUM 3.9 mmol/L (3.5-5.1)
[2017-02-12 07:30] VITALS: BP 116/58; RESP 20
[2017-02-12] MEDS: PANTOPRAZOLE IV 80 MG in SOD CHLORIDE 0.9% 100 ML IV SCH ×2 (09:12→17:33)
[2017-02-12] MEDS ORDERED: LIDOCAINE 2% (SDV) 5 ML INJ ONE (12:40)
[2017-02-12] MEDS ORDERED: PROPOFOL 40 ML ONE (12:40)
[2017-02-12 12:48] VITALS: BP 125/65; PULSE 101; RESP 20
[2017-02-12] MEDS: D5-NS + KCL 20 MEQ 1,000 ML IV SCH ×2 (12:48→20:27)
--- NOTE | 2017-02-12 12:51 | PN ---
Date/Time of Note Date/Time of Note DATE: 02/12/17 TIME: 12:46 Assessment/Plan VTE Prophylaxis VTE Prophylaxis Intervention: SCD's Lines/Catheters IV Catheter Type (from [facility]): Peripheral IV Urinary Cath still in place: No Assessment/Plan Chief Complaint/Hosp Course Assessment and plan 1. GI bleed. Patient noted with acute hemoglobin drop from 11-9. [employer] Installer is following. Tentative plan for EGD/colonoscopy today 02/12 2. Reported hematuria vs suspect vaginal bleed. pelvic ultrasound did show: Enlarged, leiomyomatous uterus. No active bleeding at this time. Patient for outpatient follow up for this. 3. Sepsis with pneumonia. On room air at this time. Continue antibiotics 4. Extensive cholelithiasis per CT scan of abdomen. Patient denies any abdominal pain at this time. Will monitor for now. Disposition plan: plan for EGD today. Will follow up Discussed plan of care with Dr. Valles Problems: Subjective 24 Hr Interval Summary Free Text/Dictation Patient still reportedly with hemoptysis today. Exam/Review of Systems Vital Signs Vitals Vital Signs Date Time Temp Pulse Resp B/P Pulse Ox O2 Delivery O2 Flow Rate FiO2 02/12/17 07:30 98.8 88 20 116/58 100 02/12/17 01:42 Nasal Cannula 2.0 21 Intake and Output 02/11/17 02/11/17 02/12/17 15:00 23:00 07:00 Intake Total 1860 ml 1410 ml Output Total 600 ml 800 ml Balance -600 ml 1060 ml 1410 ml Exam Constitutional: alert, oriented Psych: nl mood/affect Respiratory: normal air movement Cardiovascular: regular rate and rhythm Gastrointestinal: non-tender, soft Musculoskeletal: nl extremities to inspection, nl gait and stance Neurological: ELECTRICAL AND INSTRUMENT ENGINEER II-XII intact, nl mental status, nl speech Results Result Diagram: 02/12/17 0549 02/12/17 0549 Results 24 hrs Laboratory Tests Test 02/11/17 20:15 02/12/17 05:49 Hemoglobin 10.6 L 8.1 #L Hematocrit 32.8 L 25.7 #L White Blood Count 9.4 # Red Blood Count 3.14 L Mean Corpuscular Volume 81.8 L Mean Corpuscular Hemoglobin 25.8 L Mean Corpuscular Hemoglobin Concent 31.5 L Red Cell Distribution Width 15.1 H Platelet Count 128 #L Mean Platelet Volume 11.2 H Neutrophils % 70.0 Lymphocytes % 18.5 Monocytes % 7.6 Eosinophils % 3.1 Basophils % 0.4 Nucleated Red Blood Cells % 0.0 Neutrophils # (Manual) 6.6 Lymphocytes # 1.7 Monocytes # 0.7 Eosinophils # 0.3 Basophils # 0.0 Nucleated Red Blood Cells # 0.0 Sodium Level 141 Potassium Level 3.9 Chloride Level 107 Carbon Dioxide Level 27 Anion Gap 11 Blood Urea Nitrogen 6 L Creatinine 0.46 Glucose Level 138 Calcium Level 8.3 L Medications Medications Current Medications Levofloxacin/ Dextrose (Levaquin 500mg/ D5W 100 ml (Pmx)) 100 ml @ 100 mls/hr Q24H IVPB Last administered on 02/12/17 02:21; Admin Dose 100 MLS/HR; Start 02/11/17 at 02:00 Ondansetron HCl (Zofran Inj) 4 mg Q6H PRN IV NAUSEA AND/OR VOMITING; Start 02/11 at 01:30 Acetaminophen 650 mg 650 mg Q6H PRN PO PAIN AND OR ELEVATED TEMP Last administered on 02/12/17 00:34; Admin Dose 650 MG; Start 02/11/17 at 01:30 Pantoprazole/ Sodium Chloride (Protonix Iv/NS) 100 ml @ 10 mls/hr Q10H IV Last administered on 02/12/17 09:12; Admin Dose 10 MLS/HR; Start 02/11/17 at 22: 00 Metoclopramide HCl 10 mg 10 mg Q6 IV Last administered on 02/12/17 05:52; Admin Dose 10 MG; Start 02/12/17 at 00:00 Potassium Chloride/Dextrose/ Sod Cl (D5-NS + KCl 20 Meq) 1,000 ml @ 70 mls/hr [id number] IV Last administered on 02/11/17 22:46; Admin Dose 70 MLS/HR; Start 02/11/17 at 22:30 ODALIS ULRICH Feb 12, 2017 12:51
--- NOTE | 2017-02-12 13:20 | OPR ---
Date/Time of Note Date/Time of Note DATE: 02/12/17 TIME: 13:10 Operative Report Free Text/Dictation Recommendations: 1. f/u biopsy results 2. CT abdomen and pel with contrast to better evaluate the antral submucosal mass 3. regular diet 4. continue protonix bid x 2 wks for her gastritis Impression and recommendations d/w primary Procedure Date: Feb 12, 2017 Preoperative Diagnosis 1. nausea and vomiting 2. anemia 3. hematemesis 4. maroon color stool Postoperative Diagnosis same as pre-op Operation Performed EGD with biopsies diagnostic colonoscopy Surgeon: SILVIO MENDOZA MD Anesthesia Type: MAC Anesthesiologist: DOMINIQUE VERA MD Estimated Blood Loss: minimal Transfusion Required: no Specimens antral submucosal mass Grafts/Implants: none Complications: no Pt Condition Post Procedure: stable Disposition: PACU Indications 1. nausea and vomiting 2. anemia 3. hematemesis 4. maroon colored stool Operative\Procedure Findings EGD 1. gastritis 2. mallery escobedo tear Colonoscopy 1. internal hemorrhoids Procedure Description After timeout and confirming informed consent, patient was sedated by Dr. Vera. After adequate sedation, I inserted an adult EGD scope from the mouth and advanced to second portion of the duodenum. I then withdraw the EGD scope to the stomach where I performed retroflexion in the body to examine the fundus and cardia. I then suctioned out the air in the stomach while examine the esophagus circumferentially. GEJ and Z line at 39 cm, no hiatal hernia. After the completion of the EGD, patient was turned around for colonoscopy. I performed JAYCOB which has liquid brown stool. I then inserted an adult colonoscope from the anus and advanced to the cecum at 80 cm. I then intubated the IC valve and advanced to ileum and examined the ileum x 20 cm. I then withdraw the colonoscope to the colon and examine the lumen circumferentially. Retroflexion in the rectum showed small internal hemorrhoids SILVIO MENDOZA MD Feb 12, 2017 13:20
[2017-02-12] MEDS ORDERED: BARIUM SULF 2% 450 ML BTL (BERRY SMOOTHIE) PO ONE (13:30)
[2017-02-12 13:36] VITALS: BP 124/60; PULSE 86; RESP 19
[2017-02-12 13:37] VITALS: BP 124/78; RESP 20
[2017-02-12] MEDS ORDERED: GLUCAGON 1 MG INJ IV SCH (14:27)
[2017-02-12] MEDS ORDERED: BARIUM SULFATE 0.1% 450 ML BTL (VOLUMEN) PO ONE (16:11)
[2017-02-12] MEDS ORDERED: GLUCAGON 1 MG INJ IM SCH (16:30)
[2017-02-12] MEDS ORDERED: SOD CHLORIDE 0.9% 100 ML ONE (17:48)
[2017-02-12] MEDS ORDERED: IOHEXOL 300MG/ML 150 ML BTL ONE (17:48)
[2017-02-12 20:53] VITALS: BP 118/58; RESP 18
[2017-02-13] MEDS: METOCLOPRAMIDE 10 MG INJ IV SCH ×3 (00:43→12:00)
[2017-02-13] MEDS: LEVOFLOXACIN 500MG/D5W (PMX) 100 ML IVPB SCH (02:32)
[2017-02-13] MEDS: PANTOPRAZOLE IV 80 MG in SOD CHLORIDE 0.9% 100 ML IV SCH (02:37)
[2017-02-13 03:01] VITALS: BP 110/59; RESP 16
[2017-02-13 06:19] LABS: BASOPHILS % 0.2 % (0.0-2.0); EOSINOPHILS # 0.4 10^3/ul (0.0-0.5); EOSINOPHILS % 3.4 % (0.0-7.0); HEMATOCRIT 26.3 % (37.0-47.0); HEMOGLOBIN 8.3 g/dl (12.0-16.0); LYMPHOCYTES # 1.9 10^3/ul (0.8-2.9); LYMPHOCYTES % 17.7 % (15.0-51.0); MEAN CORPUSCULAR HGB CONC 31.6 g/dl (32.0-37.0); MEAN CORPUSCULAR VOLUME 82.4 fl (82.0-101.0); MEAN PLATELET VOLUME 10.8 fl (7.4-10.4); MONOCYTE # 0.7 10^3/ul (0.3-0.9); MONOCYTES % 6.4 % (0.0-11.0); NEUTROPHILS % 71.8 % (39.0-77.0); PLATELET COUNT 206 10^3/UL (140-415); RED BLOOD COUNT 3.19 10^6/ul (4.20-5.40); RED CELL DISTRIBUTION WIDTH 15.1 % (11.5-14.5); WHITE BLOOD COUNT 10.6 10^3/ul (4.8-10.8)
[2017-02-13 06:45] LABS: CALCIUM 8.7 mg/dl (8.4-10.2); CREATININE 0.55 mg/dl (0.44-1.00); POTASSIUM 4.6 mmol/L (3.5-5.1)
[2017-02-13 07:25] VITALS: BP 111/57; RESP 20
--- NOTE | 2017-02-13 10:39 | CONS ---
Date/Time of Note Date/Time of Note DATE: 02/13/17 TIME: 10:34 Assessment/Plan Assessment/Plan Chief Complaint/Hosp Course Impression: 1. post-hemorrhagic GI bleeding anemia 2. hematemesis 3. maroon colored stool 4. gall stones 5. intractable n/v 6. s/p EGD on 02/12/17 that showed gastritis, mallery escobedo tear, and possible submucosal mass s/p biopsies 7. s/p Colonoscopy on 02/12/17 that showed internal hemorrhoids Recommendations: 1. continue protonix 40 mg po bid x at least 2 wks 2. monitor h/h and transfuse prn hgb less than 8 3. f/u CT abd/pelvis enterography protocol 4. ok to dc from GI perspective once CT done and no submucosal mass 5. Dr. Washington to resume care of this patient tomorrow Problems: Consultation Date/Type/Reason Admit Date/Time Feb 10, 2017 at 22:59 Initial Consult Date 02/11/17 Type of Consultation: GI 24 HR Interval Summary Free Text/Dictation no further nausea or vomitng, no melena, no hematochezia, no hematemesis, no coffee ground emesis Constitutional: improved Exam/Review of Systems Vital Signs Vitals Vital Signs Date Time Temp Pulse Resp B/P Pulse Ox O2 Delivery O2 Flow Rate FiO2 02/13/17 07:25 98.5 76 20 111/57 97 02/13/17 02:52 2.0 02/12/17 13:36 Room Air 02/12/17 01:42 21 Intake and Output 02/12/17 02/12/17 02/13/17 15:00 23:00 07:00 Intake Total 435 ml 0 ml 1740 ml Output Total 1500 ml 700 ml Balance 435 ml -1500 ml 1040 ml Exam Constitutional: alert, oriented, well developed Psych: nl mood/affect, no complaints Head: atraumatic, normocephalic Eyes: EOMI, nl conjunctiva, nl lids, nl sclera ENMT: mucosa pink and moist, nl external ears & nose, nl lips & teeth, nl nasal mucosa & septum Neck: non-tender, supple Respiratory: clear to auscultation, normal air movement Cardiovascular: nl pulses, regular rate and rhythm Gastrointestinal: bowel sounds, non-tender, soft Results Result Diagram: 02/13/17 0542 02/13/17 0542 Results 24 hrs Laboratory Tests Test 02/13/17 05:42 White Blood Count 10.6 Red Blood Count 3.19 L Hemoglobin 8.3 L Hematocrit 26.3 L Mean Corpuscular Volume 82.4 Mean Corpuscular Hemoglobin 26.0 L Mean Corpuscular Hemoglobin Concent 31.6 L Red Cell Distribution Width 15.1 H Platelet Count 206 # Mean Platelet Volume 10.8 H Neutrophils % 71.8 Lymphocytes % 17.7 Monocytes % 6.4 Eosinophils % 3.4 Basophils % 0.2 Nucleated Red Blood Cells % 0.0 Neutrophils # (Manual) 7.6 H Lymphocytes # 1.9 Monocytes # 0.7 Eosinophils # 0.4 Basophils # 0.0 Nucleated Red Blood Cells # 0.0 Sodium Level 141 Potassium Level 4.6 Chloride Level 107 Carbon Dioxide Level 28 Anion Gap 11 Blood Urea Nitrogen 3 L Creatinine 0.55 Glucose Level 135 Calcium Level 8.7 Medications Medications Current Medications Levofloxacin/ Dextrose (Levaquin 500mg/ D5W 100 ml (Pmx)) 100 ml @ 100 mls/hr Q24H IVPB Last administered on 02/13/17 02:32; Admin Dose 100 MLS/HR; Start 02/11/17 at 02:00 Ondansetron HCl (Zofran Inj) 4 mg Q6H PRN IV NAUSEA AND/OR VOMITING; Start 02/11 at 01:30 Acetaminophen 650 mg 650 mg Q6H PRN PO PAIN AND OR ELEVATED TEMP Last administered on 02/12/17 20:30; Admin Dose 650 MG; Start 02/11/17 at 01:30 Pantoprazole/ Sodium Chloride (Protonix Iv/NS) 100 ml @ 10 mls/hr Q10H IV Last administered on 02/13/17 02:37; Admin Dose 10 MLS/HR; Start 02/11/17 at 22: 00 Metoclopramide HCl 10 mg 10 mg Q6 IV Last administered on 02/13/17 05:59; Admin Dose 10 MG; Start 02/12/17 at 00:00 Potassium Chloride/Dextrose/ Sod Cl (D5-NS + KCl 20 Meq) 1,000 ml @ 70 mls/hr [id number] IV Last administered on 02/12/17 20:27; Admin Dose 70 MLS/HR; Start 02/11/17 at 22:30 SILVIO MENDOZA MD Feb 13, 2017 10:39
[2017-02-13] MEDS ORDERED: LEVOFLOXACIN 750 MG TABLET PO ONE (11:30)
[2017-02-13] MEDS ORDERED: PANT40TA4 PO (12:24)
[2017-02-13] MEDS ORDERED: LEVO750T25 PO (12:24)
--- NOTE | 2017-02-13 12:30 | DS ---
Date/Time of Note Date/Time of Note DATE: 02/13/17 TIME: 12:29 Discharge Summary Admission/Discharge Info Admit Date/Time Feb 10, 2017 at 22:59 Discharge Date/Time Discharge Diagnosis gastritis, community acquired pneumonia Patient Condition: Stable Consults GI Procedures 9.1 CT AP IMPRESSION: 1. Extensive bronchiectasis in the partially visualized right middle lobe, lingula and throughout the lung bases. 2. Dense infiltrate medial basal segment right lower lobe. 3. Extensive cholelithiasis. 4. Splenomegaly. 5. Fecalization of the small bowel with mild retained stool without gross bowel obstruction. 6. No CT evidence for appendicitis. 7. Small umbilical hernia containing fat. 8. Enlarged lobular uterus with linear left lateral calcific density. 9. Multiple left adnexal cystic masses presumably ovarian in origin. 10. Degenerative changes within the spine. 9.1 CXR IMPRESSION: Patchy increased densities at lung bases could represent patchy infiltrates. 9.2 pelvic US IMPRESSION: 1. Enlarged, leiomyomatous uterus. 2. Simple 4.4 cm left ovarian cyst. 2. Obscured endometrium due to fibroids and an intrauterine device in place. 9.3: EGD and CScope Operative\Procedure Findings EGD 1. gastritis 2. rosey escobedo tear Colonoscopy 1. internal hemorrhoids Pathology pending at time of discharge 9.3 CT AP IMPRESSION: 1. No definite evidence of focal gastric or bowel mass lesion. 2. Enlarged heterogeneous uterus with multiple large fibroids, the largest of which measures 7.3 cm and displacing the endometrial canal inferiorly. An IUD is present within the fundal aspect of the compressed/displaced endometrial canal. 3. Extensive bronchiectasis in the partially visualized right middle lobe, lingula and throughout the lung bases. Similar in appearance compared to the prior exam. 4. Stable appearance of dense infiltrate medial basal segment right lower lobe. 5. Cholelithiasis. 6. Splenomegaly. 7. Small umbilical hernia containing fat. 8. Multiple left adnexal cystic masses presumably ovarian in origin. 10. Degenerative changes within the spine. Hx of Present Illness This is a 46 yo female with hxof asthma and gallstones who presented to ER c/o vomiting blood since yesterday. Emesis described as bright red blood. She reported similar problem a while ago, but denied any intervention. Denied abd pain or alcohol. IN ER, she was febrile with temp of 103 and had WBC of 20,000. CXR showed Patchy increased densities at lung bases could represent patchy infiltrates.CT abd/pelvis showed the following 1. Extensive bronchiectasis in the partially visualized right middle lobe, lingula and throughout the lung bases. 2. Dense infiltrate medial basal segment right lower lobe. 3. Extensive cholelithiasis. 4. Splenomegaly. 5. Fecalization of the small bowel with mild retained stool without gross bowel obstruction. 6. No CT evidence for appendicitis. 7. Small umbilical hernia containing fat. 8. Enlarged lobular uterus with linear left lateral calcific density. 9. Multiple left adnexal cystic masses presumably ovarian in origin. 10. Degenerative changes within the spine. Hospital Course Pt admitted for sepsis (fever, leukocytosis)-->found to have pulm infiltrate thus sepsis thought to be 2/2 CAP. Pt started on antimicrobials. For per c/o hematemesis and dark stools, pt seen by GI. Had EGD and CScope 9.3 notable for gastritis, MW tear, and int hemorrhoids. Pt started on high dose PPI and GI follow up advised. Of note, pt with possible submucosal mass seen on endoscopy. Biopsies obtained. It was not seen on CT. Home Meds Active Scripts Levofloxacin* (Levaquin*) 750 Mg Tablet, 750 MG PO DAILY@06 for 2 Days, #2 TAB Prov:RAYSHAWN MAYES MD 02/13/17 Pantoprazole* (Pantoprazole*) 40 Mg Tablet.dr, 40 MG PO BID@06,18 for 30 Days, # 60 Prov:RAYSHAWN MAYES MD 02/13/17 Reported Medications Mometasone-Formoterol (Dulera) Unknown Strength Hfa.aer.ad, 2 PUFFS INHALATION BID, #1 INHALER 02/10/17 Albuterol Sulfate* (Albuterol Sulfate* Neb) Unknown Strength Neb, MG NEB Q7D Y for WHEEZING AND SOB, #30 VIAL 02/10/17 Montelukast Sodium* (Montelukast Sodium*) 5 Mg Tab.chew, 5 MG PO BID, #30 TAB 02/10/17 Discontinued Reported Medications Montelukast Sodium* (Singulair*) 5 Mg Tab.chew, 1 BID 03/11/13 Prednisone* (Prednisone*) 10 Mg Tab, 1 DAILY 03/11/13 [Albuterol] No Conflict Check 10/20/09 Discontinued Scripts Amoxicillin* (Amoxicillin*) 500 Mg Cap, 500 MG PO TID for 10 Days, CAP Prov:[facility]UCIANA NAYLOR [facility] 07/11/16 Ibuprofen* (Motrin*) 600 Mg Tab, 600 MG PO Q6H Y for PAIN AND OR ELEVATED TEMP, #30 TAB Prov:TRINITYLUCIANA GOODRICH [facility] 07/11/16 Follow-up Plan PCP within 5 days GI within 4 weeks Primary Care Provider Care Physician No Primary Time spent on discharge: > 30 minutes Pending Labs Laboratory Tests Test 02/13/17 05:42 White Blood Count 10.610^3/ul (4.8-10.8) Red Blood Count 3.1910^6/ul (4.20-5.40) Hemoglobin 8.3g/dl (12.0-16.0) Hematocrit 26.3% (37.0-47.0) Mean Corpuscular Volume 82.4fl (82.0-101.0) Mean Corpuscular Hemoglobin 26.0pg (29.0-33.0) Mean Corpuscular Hemoglobin Concent 31.6g/dl (32.0-37.0) Red Cell Distribution Width 15.1% (11.5-14.5) Platelet Count 45639^3/UL (140-415) Mean Platelet Volume 10.8fl (7.4-10.4) Neutrophils % 71.8% (39.0-77.0) Lymphocytes % 17.7% (15.0-51.0) Monocytes % 6.4% (0.0-11.0) Eosinophils % 3.4% (0.0-7.0) Basophils % 0.2% (0.0-2.0) Nucleated Red Blood Cells % 0.0/100WBC (0.0-0.0) Neutrophils # (Manual) 7.610^3/ul (1.7-7.5) Lymphocytes # 1.910^3/ul (0.8-2.9) Monocytes # 0.710^3/ul (0.3-0.9) Eosinophils # 0.410^3/ul (0.0-0.5) Basophils # 0.010^3/ul (0.0-0.1) Nucleated Red Blood Cells # 0.010^3/ul (0.0-0.0) Sodium Level 141mmol/L (135-144) Potassium Level 4.6mmol/L (3.5-5.1) Chloride Level 107mmol/L (97-110) Carbon Dioxide Level 28mmol/L (21-31) Anion Gap 11 (8-16) Blood Urea Nitrogen 3mg/dl (7-20) Creatinine 0.55mg/dl (0.44-1.00) Glucose Level 135mg/dl (70-220) Calcium Level 8.7mg/dl (8.4-10.2) Copies To: CC: SILVIO MENDOZA MD; PRESTON JIMENEZ MD, ELLEN MD Feb 13, 2017 12:30
[2017-02-13 13:31] VITALS: BP 139/66; RESP 20
--- NOTE | 2017-02-13 15:03 | RADRPT ---
PROCEDURE: CT Abdomen and Pelvis with and without contrast. CLINICAL INDICATION: Abdominal pain. Gastric submucosal mass. TECHNIQUE: CT scan of the abdomen and pelvis with contrast was performed on a multi-detector high- resolution CT scanner. The patient was scanned beofre and following the uncomplicated intravenous a dministration of 100 cc of Omnipaque 300. Both arterial and venous post contrast phases were obtain ed. Coronal and sagittal reformatted images were obtained from the axial source images. One or more of the following dose reduction techniques were used: Automated exposure control, adjustment of the mA and/or kV according to patient size, use of iterative reconstruction technique. Images were rev iewed on a high-resolution PACS workstation. The total exam CTDI equals 8.82, 8.78, 8.77 mGy and th e total exam DLP equals 1328.57 mGy-cm. COMPARISON: None available. FINDINGS: The stomach and small bowel is diffusely fluid-filled. No definite submucosal lesion is identified within the stomach. There is distal small bowel fecalization and mild retained stool without gross bowel obstruction. The appendix is visualized and is without abnormal thickening or surrounding infl ammatory reaction. There is extensive bronchiectasis identified within the partially visualized right middle lobe, ling jemima and lung bases. There is an infiltrate present within the medial basal segment of the right lowe r lobe with air bronchograms. There is no evidence for significant pleural effusion. The liver has a normal size and contour without focal areas of abnormal density. No intrahepatic nor extrahepatic biliary ductal dilatation is seen. The gallbladder contains innumerable calcified gall stones without significant wall thickening or pericholecystic fluid. The pancreas is without areas o f abnormal attenuation. The spleen is enlarged measuring 14.0 cm in maximal length but without abnor mal density. The adrenal glands are unremarkable. The kidneys are without abnormal density. No hydro ureteronephrosis nor nephroureterolithiasis is evident. The urinary bladder contains urine. There is a small umbilical hernia with an opening of 12 x 9 mm. The uterus is enlarged, heterogeneously enhancing, with a lobular appearance measuring approximately 13.3 x 8.4 x 8.7 cm. At least 2 large fibroids are seen measuring up to 7.3 cm in diameter. This l argest fibroid is displacing the endometrial canal inferiorly. An IUD is present to within the fund al aspect of the displaced endometrial canal (image 64, series 602). There is a linear calcific dens ity within the left lateral aspect of the uterus. There is a large left adnexal cystic mass measurin g approximately 8.0 x 4.6 x 6.1 cm. There is a smaller inferior cystic left adnexal mass measuring a pproximately 4.8 x 4.6 x 3.6 cm. There is no significant pelvic free fluid. The aortoiliac vessels are without aneurysmal dilatation. Degenerative changes are seen within the s pine. There appears to be partial fusion of the L4-5 interspace with marked L5-S1 facet arthropathy. IMPRESSION: 1. No definite evidence of focal gastric or bowel mass lesion. 2. Enlarged heterogeneous uterus with multiple large fibroids, the largest of which measures 7.3 cm and displacing the endometrial canal inferiorly. An IUD is present within the fundal aspect of the compressed/displaced endometrial canal. 3. Extensive bronchiectasis in the partially visualized right middle lobe, lingula and throughout t he lung bases. Similar in appearance compared to the prior exam. 4. Stable appearance of dense infiltrate medial basal segment right lower lobe. 5. Cholelithiasis. 6. Splenomegaly. 7. Small umbilical hernia containing fat. 8. Multiple left adnexal cystic masses presumably ovarian in origin. 10. Degenerative changes within the spine. RPTAT: QQ .Renard Palomo MD, Date Time Electronically viewed and signed by .Renard Palomo MD, on 02/13/2017 15:03 .A/
--- NOTE | 2017-02-13 16:38 | PDOCDIS ---
Discharge Instructions DIAGNOSIS Discharge Diagnosis gastritis, community acquired pneumonia CONDITION Patient Condition: Stable HOME CARE INSTRUCTIONS: Diet Instructions: Reduced Calorie ACTIVITY: Bathing Restrictions: Shower FOLLOW UP/APPOINTMENTS Follow-up Plan Follow up with gastroenterology/the stomach doctor within 4 weeks Seguimiento con gastroenterologa / el mdico del estmago dentro de [address] [place] Address: [address] [place] [id number] RAYSHAWN MAYES MD Feb 13, 2017 16:38
[2017-02-13] MEDS ORDERED: PANTOPRAZOLE (EC) 40 MG TAB PO SCH (18:00)
[2017-02-14] MEDS ORDERED: LEVOFLOXACIN 750 MG TABLET PO SCH (06:00)
== END 2017-02-13 18:30 | disposition home or self-care (01) | DRG 871 ==
LOC: E/R 17:52 → MS2 22:59
PROVIDERS: ADMIT Internal Medicine; ATTEND Internal Medicine
PROC: 0DB68ZX Excision of Stomach, Via Natural or Artificial Opening Endoscopic, Diagnostic (ICD-10-PCS; principal; 2017-02-12 12:40)
PROC: 0DJD8ZZ Inspection of Lower Intestinal Tract, Via Natural or Artificial Opening Endoscopic (ICD-10-PCS; 2017-02-12 12:40)
DX: A41.9 Sepsis, unspecified organism (principal); J18.9 Pneumonia, unspecified organism; K22.6 Gastro-esophageal laceration-hemorrhage syndrome; D69.6 Thrombocytopenia, unspecified; K92.1 Melena; J45.909 Unspecified asthma, uncomplicated; K80.20 Calculus of gallbladder without cholecystitis without obstruction; D50.0 Iron deficiency anemia secondary to blood loss (chronic); K29.70 Gastritis, unspecified, without bleeding; K64.8 Other hemorrhoids
CPT/HCPCS: 36415; 71010; 74176; 74177; 76856; 80048; 80053; 81001; 83605; 83735; 84100; 84484; 85014; 85018; 85025; 85610; 85730; 87040; 87070; 87086; 88305; 88312; 93005; 94640; 94664; 96365; 96366; 96368; C9113; J0456; J1610; J1956; J2765; J3480; J7030; Q9967

== ENCOUNTER 2017-10-04 22:04 | Emergency (ER) | END 2017-10-05 01:51 | disposition home or self-care (01) ==